=== PATIENT | male | born 1930 | race Caucasian/White ===

== ENCOUNTER 2016-03-24 | Outpatient (CLI) | END 2016-03-24 08:39 | disposition short-term general hospital (02) | CPT/HCPCS: A0425; A0429; A0888 ==

== ENCOUNTER 2016-03-31 11:31 | Outpatient (CLI) | payer MEDICARE | END 2016-03-31 11:32 | disposition home or self-care (01) | DX: J18.9 Pneumonia, unspecified organism (principal) ==

== ENCOUNTER 2016-05-09 02:20 | Outpatient (CLI) | payer MEDICARE | END 2016-05-09 02:21 | disposition short-term general hospital (02) | DX: R31.9 Hematuria, unspecified (principal) | CPT/HCPCS: A0425; A0429 ==

== ENCOUNTER 2016-05-14 | Outpatient (CLI) | payer MEDICARE | END 2016-05-14 15:58 | disposition short-term general hospital (02) | CPT/HCPCS: A0425; A0429 ==

== ENCOUNTER 2016-05-15 | Outpatient (CLI) | payer MEDICARE | END 2016-05-15 05:58 | disposition critical access hospital (66) | DX: T83.84XA Pain due to genitourinary prosthetic devices, implants and grafts, initial encounter (principal) | CPT/HCPCS: A0425; A0429 ==

== ENCOUNTER 2016-05-15 | Outpatient (CLI) | payer MEDICARE | END 2016-05-15 20:49 | disposition critical access hospital (66) | DX: T83.021A Displacement of indwelling urethral catheter, initial encounter (principal) | CPT/HCPCS: A0425; A0429 ==

== ENCOUNTER 2016-05-15 | Emergency (ER) | payer MEDICARE | END 2016-05-15 21:57 | disposition home or self-care (01) ==

== ENCOUNTER 2016-05-15 06:16 | Emergency (ER) | payer MEDICARE | END 2016-05-15 08:31 | disposition home or self-care (01) | DX: T83.84XA Pain due to genitourinary prosthetic devices, implants and grafts, initial encounter (principal); Y84.6 Urinary catheterization as the cause of abnormal reaction of the patient, or of later complication, without mention of misadventure at the time of the procedure; R31.9 Hematuria, unspecified; T83.021A Displacement of indwelling urethral catheter, initial encounter; E11.9 Type 2 diabetes mellitus without complications; I25.10 Atherosclerotic heart disease of native coronary artery without angina pectoris; Z95.1 Presence of aortocoronary bypass graft; Z79.82 Long term (current) use of aspirin ==

== ENCOUNTER 2016-06-25 12:00 | Outpatient (CLI) | payer MEDICARE | END 2016-06-25 12:01 | disposition home or self-care (01) | DX: I50.22 Chronic systolic (congestive) heart failure (principal) ==

== ENCOUNTER 2016-07-01 15:29 | Outpatient (CLI) | payer MEDICARE | END 2016-07-01 15:30 | disposition short-term general hospital (02) | DX: R06.02 Shortness of breath (principal) | CPT/HCPCS: A0425; A0429; A0888 ==

== ENCOUNTER 2016-07-20 13:58 | Outpatient (CLI) | payer MEDICARE | END 2016-07-20 13:59 | disposition short-term general hospital (02) | DX: R53.1 Weakness (principal); R06.00 Dyspnea, unspecified | CPT/HCPCS: A0425; A0429; A0888 ==

== ENCOUNTER 2016-08-20 10:48 | Outpatient (CLI) | payer MEDICARE | END 2016-08-20 10:49 | disposition short-term general hospital (02) | LOC: EMS 10:48 | PROVIDERS: ATTEND Surgery | DX: R53.1 Weakness (principal); R42 Dizziness and giddiness | CPT/HCPCS: A0425; A0429; A0888 ==